=== PATIENT | female | born 2000 | race Caucasian/White ===

== ENCOUNTER 2019-09-10 11:36 | Emergency (ER) | payer OTHER ==
[2019-09-10 12:01] LABS: BILIRUBIN,URINE NEGATIVE (NEGATIVE); GLUCOSE, URINE (UA) NEGATIVE (NEGATIVE); KETONES,URINE (UA) TRACE mg/dL (NEGATIVE); LEUKOCYTE ESTERASE, URINE SMALL (NEGATIVE); NITRITE,URINE POSITIVE (NEGATIVE); OCCULT BLOOD,URINE TRACE-INTA (NEGATIVE); PROTEIN,URINE 30 mg/dL (NEGATIVE); UROBILINOGEN,URINE 0.2 (NORMAL) E.U./dL (NORMAL)
[2019-09-10 12:02] LABS: CLARITY,URINE HAZY (CLEAR)
[2019-09-10 12:10] LABS: BACTERIA,URINE Many /HPF (None Seen); RBC,URINE 0-5 /HPF (0-5); SQUAMOUS EPITHELIAL CELL,UR MANY Squamous (<= Few)
[2019-09-10 12:25] LABS: BASOPHILS # (AUTO) 0.1 10^3/uL (0.0-0.1); BASOPHILS % (AUTO) 0.7 %; EOSINOPHILS % (AUTO) 0.1 %; HGB - HEMOGLOBIN 11.4 g/dL (12.0-16.0); LYMPHOCYTES # (AUTO) 1.1 10^3/uL (1.5-3.5); LYMPHOCYTES % (AUTO) 10.3 %; MEAN CORPUSCULAR HEMOGLOBIN 29.2 pg (27.0-31.0); MEAN CORPUSCULAR HGB CONC 32.3 g/dL (32.0-36.0); MEAN CORPUSCULAR VOLUME 90.5 fL (81.0-99.0); MEAN PLATELET VOLUME 8.4 fL (7.9-10.8); MONOCYTES # (AUTO) 1.1 10^3/uL (0.0-1.0); MONOCYTES % (AUTO) 10.6 %; NEUTROPHILS # (AUTO) 8.3 10^3/uL (1.5-6.6); NEUTROPHILS % (AUTO) 77.9 %; PLT - PLATELET COUNT 364 10^3/uL (130-450); RED CELL DISTRIBUTION WIDTH 13.2 % (12.0-15.0); WHITE BLOOD COUNT 10.6 x10^3/uL (4.8-10.8)
[2019-09-10 12:36] LABS: ALBUMIN 4.2 g/dL (3.2-5.5); ALBUMIN/GLOBULIN RATIO 1.2 (1.0-2.2); BILIRUBIN,TOTAL 0.7 mg/dL (0.2-1.0); CALCIUM 9.2 mg/dL (8.5-10.3); CREATININE 0.9 mg/dL (0.4-1.0); TOTAL PROTEIN 7.8 g/dL (6.7-8.2)
[2019-09-10 16:38] LABS: HCG UR QUAL NEGATIVE
[2019-09-10] MEDS ORDERED: SODIUM CHLORIDE 0.9% 1,000 ML IV ONE (16:42)
[2019-09-10] MEDS ORDERED: ONDANSETRON 4 MG/2 ML VIAL IVP STA (16:43)
[2019-09-10] MEDS ORDERED: POTASSIUM CHLORIDE 20 MEQ TABLET PO STA (16:44)
[2019-09-10] MEDS ORDERED: cefTRIAXone 2 GM in SODIUM CHLORIDE 0.9% MINIBAG 100 ML IV STA (16:53)
--- NOTE | 2019-09-10 17:03 | ED Physician Documentation ---
History of Present Illness - Stated complaint Stated Complaint: DIZZINESS - Chief complaint Chief Complaint: Abd Pain - History obtained from History obtained from: Patient - History of Present Illness Timing: Last night Pain level max: 4 Pain level now: 4 Quality: dull Radiates to: back Improved by: nothing Worsened by: nothing - Additonal information Additional information: 18-year-old female who is otherwise healthy presents to the emergency department for evaluation because of dizziness, lightheadedness. She stated that she went home after work around midnight, patient started feeling lightheaded, dizzy and had one episode of vomiting. Patient stated that she felt like she was going to pass out. She reported of patient is going in and out as if she was going to pass out but she did not pass out. Symptoms was worse with standing. She denies associated chest pain or shortness of breath. Patient report of bilateral lower abdominal discomfort radiating to her back. She denies dysuria or urinary frequency or urgency. She also reports of heat flashes. She reports of a headache. She denies any neck pain. She denies any speech problems, extremity numbness, weakness. She denies similar symptoms like this in the past. Her last menstrual period was last week. She denies any vaginal bleeding or vaginal discharge. Review of Systems Constitutional: denies: Fever, Chills Eyes: denies: Loss of vision, Photophobia Nose: denies: Rhinorrhea / runny nose Throat: denies: Dental pain / toothache Cardiac: reports: Other (light-headedness. 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 : None HEENT: None Psych: None Musculoskeletal: None Derm: None - Past Surgical History Past Surgical History: No - Present Medications Home Medications: Ambulatory Orders Medication Instructions Recorded Confirmed Cephalexin [Keflex] 500 mg PO BID #10 capsule 09/10/19 - Allergies Allergies/Adverse Reactions: Allergies Allergy/AdvReac Type Severity Reaction Status Date / Time No Known Drug Allergies Allergy Verified 09/10/19 11:40 - Social History Does the pt smoke?: Yes Smoking Status: Current every day smoker Does the pt drink ETOH?: No Does the pt have substance abuse?: No - Immunizations Immunizations are current?: Yes PD ED PE NORMAL - Vitals Vital signs reviewed: Yes - General General: Alert and oriented X 3 - HEENT HEENT: Atraumatic, PERRL, EOMI, Moist mucous membranes, Other (no nystagmus) - Neck Neck: Supple, no meningeal sign - Cardiac Cardiac: Other (tachycardiac) - Abdomen Abdomen: Normal bowel sounds, Soft, Non tender, Non distended, No organomegaly - Back Back: No CVA TTP - Extremities Extremities: No deformity - Neuro Neuro: Alert and oriented X 3, resourcing consultant 2-12 intact, No motor deficit, No sensory deficit, Normal speech, Other (Finger to nose is normal bilaterally. Rapid hand movements were normal. No nystagsmus. ) Eye Opening: Spontaneous Motor: Obeys Commands Verbal: Oriented GCS Score: 15 Results - Vitals Vitals: Vital Signs - 24 hr 09/10/19 09/10/19 09/10/19 11:40 15:00 16:42 Temperature 36.5 C Heart Rate 109 H 109 H Heart Rate [ 110 H Sitting] Heart Rate [ 103 H Standing] Heart Rate [ 99 Supine] Respiratory 14 18 Rate Blood Pressure 118/78 106/60 Blood Pressure 95/66 [Sitting] Blood Pressure 74/32 L [Standing] Blood Pressure 92/60 [Supine] O2 Saturation 100 97 09/10/19 09/10/19 19:38 19:45 Temperature Heart Rate 96 Heart Rate [ Sitting] Heart Rate [ Standing] Heart Rate [ Supine] Respiratory 18 16 Rate Blood Pressure 108/69 Blood Pressure [Sitting] Blood Pressure [Standing] Blood Pressure [Supine] O2 Saturation 98 Oxygen O2 Source Room air - Labs Labs: Laboratory Tests 09/10/19 09/10/19 09/10/19 11:48 11:48 12:17 WBC 10.6 RBC 3.90 L Hgb 11.4 L Hct 35.3 L MCV 90.5 MCH 29.2 MCHC 32.3 RDW 13.2 Plt Count 364 MPV 8.4 Neut # (Auto) 8.3 H Lymph # (Auto) 1.1 L Dukes # (Auto) 1.1 H Eos # (Auto) 0.0 Baso # (Auto) 0.1 Absolute Nucleated RBC 0.00 Nucleated RBC % 0.0 Sodium Potassium Chloride Carbon Dioxide Anion Gap BUN Creatinine Estimated GFR (MDRD) Glucose Calcium Total Bilirubin AST ALT Alkaline Phosphatase Total Protein Albumin Globulin Albumin/Globulin Ratio Lipase Urine Color YELLOW Urine Clarity HAZY Urine pH 6.0 Ur Specific Mascot >=1.030 H >=1.030 H Urine Protein 30 H Urine Glucose (UA) NEGATIVE Urine Ketones TRACE Urine Occult Blood TRACE-INTA Urine Nitrite POSITIVE H Urine Bilirubin NEGATIVE Urine Urobilinogen 0.2 (NORMAL) Ur Leukocyte Esterase SMALL H Urine RBC 0-5 Urine WBC >25 H Ur Squamous Epith Cells MANY Squamous H Urine Bacteria Many H Ur Microscopic Review INDICATED Urine Culture Comments NOT INDICATED Urine HCG, Qual NEGATIVE 09/10/19 12:17 WBC RBC Hgb Hct MCV MCH MCHC RDW Plt Count MPV Neut # (Auto) Lymph # (Auto) Dukes # (Auto) Eos # (Auto) Baso # (Auto) Absolute Nucleated RBC Nucleated RBC % Sodium 137 Potassium 3.2 L Chloride 103 Carbon Dioxide 24 Anion Gap 10.0 BUN 10 Creatinine 0.9 Estimated GFR (MDRD) 81 L Glucose 114 H Calcium 9.2 Total Bilirubin 0.7 AST 39 ALT 22 Alkaline Phosphatase 66 Total Protein 7.8 Albumin 4.2 Globulin 3.6 Albumin/Globulin Ratio 1.2 Lipase 29 Urine Color Urine Clarity Urine pH Ur Specific Mascot Urine Protein Urine Glucose (UA) Urine Ketones Urine Occult Blood Urine Nitrite Urine Bilirubin Urine Urobilinogen Ur Leukocyte Esterase Urine RBC Urine WBC Ur Squamous Epith Cells Urine Bacteria Ur Microscopic Review Urine Culture Comments Urine HCG, Qual PD MEDICAL DECISION MAKING - ED course Complexity details: re-evaluated patient, d/w patient ED course: EKG performed at 09/10/2019 showed sinus rhythm with rate of 83, normal axis, normarl pr, qrs and qtc. Nonspecific ST changes without ST elevation or depression. No old EKG to compare. I have considered arrhythmia, sepsis, dehydration, electrolyte derangement and other etiologies in the differential diagnosis. 1700 Stable. Orthostatic vitals were positive. Patient was symptomatic with dizziness. IV fluid being infused. 1800 No acute distress. Awaiting for pelvic ultrasound. 1919 Stable. Feeling better. No distress. 1936 Patient ambulated with a steady gait. No dizziness. Feeling much better. No vomiting. Stable to be discharged. Departure - Departure Disposition: 01 Home, Self Care Clinical Impression: Dehydration, Hypokalemia Urinary tract infection Qualifiers: Urinary tract infection type: site unspecified Hematuria presence: without hematuria Qualified Code(s): N39.0 - Urinary tract infection, site not specified Condition: Stable Instructions: ED Dehydration, ED UTI Cystitis Female Follow-Up: BERNARDO Dial [Provider Group] - Within 1 week Prescriptions: Cephalexin [Keflex] 500 mg PO BID #10 capsule Comments: PLEASE RETURN TO THE EMERGENCY DEPARTMENT IF YOU HAVE A FEVER OF 100.4 OR GREATER, RETURN OF SYMPTOMS, EPISODES OF PASSING OUT OR ANY NEW OR CONCERNING SYMPTOMS. Discharge Date/Time: 09/10/19 19:50
[2019-09-10] MEDS ORDERED: KETOROLAC 15 MG/ML VIAL IVP STA (17:11)
--- NOTE | 2019-09-10 19:29 | Ultrasound Report ---
Reason: pelvic cramps Procedure Date: 09/10/2019 Accession Number: [id number] / [id number] Procedure: US - Pelvic Complete CPT Code: Final Report FULL RESULT: EXAM: PELVIC ULTRASOUND EXAM DATE: 09/10/2019 06:57 PM. CLINICAL HISTORY: Pelvic cramps. COMPARISON: None. TECHNIQUE: Realtime transabdominal pelvic scan performed to identify the uterus and adnexa and as an overview of other pelvic structures, with static image documentation. FINDINGS: Uterus: 7.2 x 3.0 x 5.0 cm, volume 56 cc. Anteverted position. Normal overall size and echotexture. Masses: None. Endometrium: 6 mm. Normal. Cervix: Unremarkable. Right Ovary: 2.4 x 2.2 x 2.0 cm, volume 5.4 cc. Normal echotexture and blood flow. Left Ovary: 2.8 x 2.1 x 1.9 cm, volume 6 cc. Normal echotexture and blood flow. Free Fluid: None. Other: None. IMPRESSION: Normal pelvic ultrasound. RADIA
[2019-09-10 19:39] VITALS: BP 108/69
== END 2019-09-10 19:50 | disposition home or self-care (01) ==
LOC: ED 11:36
DX: E86.0 Dehydration (principal); E87.6 Hypokalemia; N39.0 Urinary tract infection, site not specified; F17.200 Nicotine dependence, unspecified, uncomplicated
CPT/HCPCS: 36415; 76856; 80053; 81001; 81025; 83690; 85025; 93005; 96365; 96375; 99284; A9270; 81003; 87086

== ENCOUNTER 2021-02-06 10:27 | Emergency (ER) | payer OTHER ==
--- NOTE | 2021-02-06 11:25 | ED Physician Documentation ---
PD HPI UPPER EXT INJURY - Stated complaint Stated Complaint: LT HAND FINGER LACK - Chief complaint Chief Complaint: Laceration - History obtained from History obtained from: Patient - History of Present Illness Location: Left, Finger (middle) Type of injury: Other (industrial needle caught finger tip and took off distal portion of nail with acrylic. 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 : None HEENT: None Psych: None Musculoskeletal: None Derm: None - Past Surgical History Past Surgical History: No - Present Medications Home Medications: Ambulatory Orders Medication Instructions Recorded Confirmed No Known Home Medications 02/06/21 02/06/21 - Allergies Allergies/Adverse Reactions: Allergies Allergy/AdvReac Type Severity Reaction Status Date / Time No Known Drug Allergies Allergy Verified 02/06/21 10:35 - Social History Does the pt smoke?: No Smoking Status: Never smoker Does the pt drink ETOH?: No Does the pt have substance abuse?: No - Immunizations Immunizations are current?: Yes PD ED PE NORMAL - Vitals Vital signs reviewed: Yes - General General: Alert and oriented X 3, Well developed/nourished - Derm Derm: Normal color, Warm and dry - Extremities Extremities: Other (left middle finger distal third of nail avulsed and portion of nail still dangling barely attached. The nailbed is actually fairly flat and ddoes not need repair. ) Results - Vitals Vitals: Oxygen O2 Source Room air PD MEDICAL DECISION MAKING - ED course Complexity details: considered differential, d/w patient Departure - Departure Disposition: 01 Home, Self Care Clinical Impression: Nail avulsion, finger Qualifiers: Encounter type: initial encounter Qualified Code(s): S61.309A - Unspecified open wound of unspecified finger with damage to nail, initial encounter Condition: Stable Record reviewed to determine appropriate education?: Yes Comments: Clean the wound with soap and water once or twice a day and apply ointment. Recheck if signs of infection. Otherwise the laceration of the nailbed should heal over several days to a week or so and the new nail should grow out over that area over time. Tylenol or ibuprofen if needed for pains. Discharge Date/Time: 02/06/21 12:51
[2021-02-06] MEDS ORDERED: IBUPROFEN 600 MG TABLET PO STA (12:00)
[2021-02-06] MEDS ORDERED: BACITRACIN ZINC OINT 1 PACKET TOP STA ×2 (12:00→12:36)
[2021-02-06 12:47] VITALS: BP 123/78
== END 2021-02-06 12:51 | disposition home or self-care (01) ==
LOC: ED 10:27
DX: S61.303A Unspecified open wound of left middle finger with damage to nail, initial encounter (principal); W23.1XXA Caught, crushed, jammed, or pinched between stationary objects, initial encounter; Y99.0 Civilian activity done for income or pay
CPT/HCPCS: 99282; A9270

== ENCOUNTER 2021-04-13 12:21 | Emergency (ER) | payer OTHER ==
[2021-04-13 12:28] VITALS: BP 124/74
--- NOTE | 2021-04-13 12:59 | ED Physician Documentation ---
History of Present Illness - Stated complaint Stated Complaint: RASH,FACIAL SWELLING - Chief complaint Chief Complaint: Heent - History obtained from History obtained from: Patient - History of Present Illness Timing: How many days ago (3) Pain level max: 0 Pain level now: 0 - Additonal information Additional information: 20-year-old female presents to the emergency department stating that she has had swelling and redness to her nose and face for the past several days. This has occurred in the past. No cause found. Does have a nose ring. She has been referred to ENT but does not have an appointment yet. She states it feels hot and swollen. Concerned about potential infection. 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 : None HEENT: None Psych: None Musculoskeletal: None Derm: None - Past Surgical History Past Surgical History: No - Present Medications Home Medications: Ambulatory Orders Medication Instructions Recorded Confirmed Sulfamethox/Trimeth 800/160 1 each PO BID #14 tablet 04/13/21 [Bactrim Ds 800/160] cephALEXin [Keflex] 500 mg PO Q6H #28 cap 04/13/21 predniSONE [Deltasone] 40 mg PO DAILY #10 tablet 04/13/21 - Allergies Allergies/Adverse Reactions: Allergies Allergy/AdvReac Type Severity Reaction Status Date / Time No Known Drug Allergies Allergy Verified 04/13/21 12:28 - Social History Does the pt smoke?: No Smoking Status: Never smoker Does the pt drink ETOH?: No Does the pt have substance abuse?: No - Immunizations Immunizations are current?: Yes PD ED PE NORMAL - Vitals Vital signs reviewed: Yes - General General: Alert and oriented X 3, No acute distress, Well developed/nourished - HEENT HEENT: PERRL, Moist mucous membranes, Other (malar erythema, swollen, edematous nose. no drainable abscess. ) - Neck Neck: Supple, no meningeal sign - Cardiac Cardiac: RRR, Strong equal pulses - Respiratory Respiratory: No respiratory distress, Clear bilaterally - Abdomen Abdomen: Soft, Non tender, Non distended - Derm Derm: Warm and dry - Neuro Neuro: Alert and oriented X 3 - Psych Psych: Normal mood, Normal affect Results - Vitals Vitals: Vital Signs - 24 hr 04/13/21 12:25 Temperature 36.2 C L Heart Rate 90 Respiratory 16 Rate Blood Pressure 124/74 O2 Saturation 100 Oxygen O2 Source Room air PD MEDICAL DECISION MAKING - ED course Complexity details: considered differential, d/w patient ED course: Patient with erythema to the malar area of her face. Likely represents a cellulitis, possibly secondary to her nose ring, possible allergic response to the metal in the nose ring. We will place on steroids and antibiotics to see if she improves. She does have a follow-up scheduled with ENT. As this has been recurrent, lupus would be on the differential as well as other autoimmune diseases. Recommend she follow-up with her doctor for this. Patient counseled regarding signs and symptoms for which I believe and urgent re-evaluation would be necessary. Patient with good understanding of and agreement to plan and is comfortable going home at this time This document was made in part using voice recognition software. While efforts are made to proofread this document, sound alike and grammatical errors may occur. Departure - Departure Disposition: 01 Home, Self Care Clinical Impression: Cellulitis Qualifiers: Site of cellulitis: face Qualified Code(s): L03.211 - Cellulitis of face Condition: Good Instructions: ED Cellulitis Facial Follow-Up: HOLLY HADDAD DO [Primary Care Provider] - Within 1 week Prescriptions: Sulfamethox/Trimeth 800/160 [Bactrim Ds 800/160] 1 each PO BID #14 tablet predniSONE [Deltasone] 40 mg PO DAILY #10 tablet cephALEXin [Keflex] 500 mg PO Q6H #28 cap Comments: Your prescriptions were sent to [facility] in [place]. Please follow-up with your doctor for further care. I would recommend removal of the nose ring as this could be contributing to the infection. It is possible that the malar rash that you are having could be consistent with an autoimmune condition such as lupus, I think this is less likely. Please follow- up with ENT as recommended.
== END 2021-04-13 13:27 | disposition home or self-care (01) ==
LOC: ED 12:21
DX: L03.211 Cellulitis of face (principal)
CPT/HCPCS: 99283

== ENCOUNTER 2021-08-14 14:37 | Outpatient (CLI) | payer OTHER | END 2021-08-14 23:59 | disposition home or self-care (01) | LOC: LAB.N 14:37 | PROVIDERS: ATTEND Nurse Practitioner | DX: U07.1 COVID-19 (principal) ==

== ENCOUNTER 2021-08-17 09:26 | Emergency (ER) | payer OTHER ==
[2021-08-17 09:33] VITALS: BP 132/74
[2021-08-17 09:58] LABS: RAPID STREP SCREEN Negative (Negative)
[2021-08-17] MEDS ORDERED: cephALEXin 250 MG CAPSULE PO STA (10:24)
[2021-08-17] MEDS ORDERED: DEXAMETHASONE 10 MG/ML VIAL PO STA (10:24)
--- NOTE | 2021-08-17 10:27 | ED Physician Documentation ---
History of Present Illness - Stated complaint Stated Complaint: SORE THROAT/COUGH - Chief complaint Chief Complaint: Heent - History obtained from History obtained from: Patient - History of Present Illness Timing: Today Pain level max: 0 Pain level now: 0 - Additonal information Additional information: 20-year-old female states that she has been sick for the past 5 days. Sore throat, nasal congestion. Noticed white patches on her throat today. Negative Covid test 2 days ago. Denies any possibility of . 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 : None HEENT: None Psych: None Musculoskeletal: None Derm: None - Past Surgical History Past Surgical History: No - Present Medications Home Medications: Ambulatory Orders Medication Instructions Recorded Confirmed Sulfamethox/Trimeth 800/160 1 each PO BID #14 tablet 04/13/21 [Bactrim Ds 800/160] cephALEXin [Keflex] 500 mg PO Q6H #28 cap 04/13/21 predniSONE [Deltasone] 40 mg PO DAILY #10 tablet 04/13/21 Penicillin V Potassium 500 mg PO Q6HR #40 tablet 08/17/21 - Allergies Allergies/Adverse Reactions: Allergies Allergy/AdvReac Type Severity Reaction Status Date / Time No Known Drug Allergies Allergy Verified 08/17/21 09:34 - Social History Does the pt smoke?: No Smoking Status: Never smoker Does the pt drink ETOH?: No Does the pt have substance abuse?: No - Immunizations Immunizations are current?: Yes PD ED PE NORMAL - General General: Alert and oriented X 3 - HEENT HEENT: Ears normal, Moist mucous membranes, Other (Posterior oropharynx is erythematous with tonsillar exudates. Normal phonation. No trismus. Uvula midline.) - Neck Neck: Supple, no meningeal sign - Cardiac Cardiac: RRR - Respiratory Respiratory: No respiratory distress, Clear bilaterally - Derm Derm: Warm and dry - Neuro Neuro: Alert and oriented X 3 - Psych Psych: Normal mood, Normal affect Results - Vitals Vitals: Vital Signs - 24 hr 08/17/21 09:30 Temperature 36.6 C Heart Rate 98 Respiratory 18 Rate Blood Pressure 132/74 H O2 Saturation 100 Oxygen O2 Source Room air - Labs Labs: Laboratory Tests 08/17/21 09:35 Group A Strep Rapid Negative PD MEDICAL DECISION MAKING - ED course Complexity details: reviewed results, considered differential, d/w patient ED course: Patient with what appears to be strep pharyngitis clinically. We will place on antibiotics and have her follow-up with her doctor for further care. Patient is well-appearing, nontoxic. Afebrile. No evidence of peritonsillar or retropharyngeal abscess. Patient counseled regarding signs and symptoms for which I believe and urgent re-evaluation would be necessary. Patient with good understanding of and agreement to plan and is comfortable going home at this time This document was made in part using voice recognition software. While efforts are made to proofread this document, sound alike and grammatical errors may occur. Departure - Departure Disposition: 01 Home, Self Care Clinical Impression: Pharyngitis Qualifiers: Pharyngitis/tonsillitis etiology: unspecified etiology Qualified Code(s): J02.9 - Acute pharyngitis, unspecified Condition: Good Instructions: ED Strep Pharyngitis Poss Follow-Up: HOLLY HADDAD DO [Primary Care Provider] - Prescriptions: Penicillin V Potassium 500 mg PO Q6HR #40 tablet Comments: Please follow-up with your doctor as needed for further care. Take all antibiotics until gone. Even if you are feeling better. Your prescription was sent to [facility] in [place]. Discharge Date/Time: 08/17/21 10:29
== END 2021-08-17 10:29 | disposition home or self-care (01) ==
LOC: ED 09:26
DX: J02.9 Acute pharyngitis, unspecified (principal)
CPT/HCPCS: 87070; 87430; 99282; 99283

== ENCOUNTER 2023-09-14 09:20 | Emergency (ER) | payer OTHER ==
--- NOTE | 2023-09-14 10:22 | ED Physician Documentation ---
PD HPI HEENT - Stated complaint Stated Complaint: FACIAL SWELLING - Chief complaint Chief Complaint: Heent - History obtained from History obtained from: Patient - History of Present Illness Timing - onset: How many days ago (4) Timing - duration: Days (4) Timing - details: Abrupt onset, Still present Location: Left ear Improves: No: Medication (seen at walk in and Rx Ofloxacin ear drops. Pt states it feels like the drops are not getting in ear canal due to swelling and has had icnreased swelling around ear since then.) Worsens: Swalllowing Associated symptoms: No: Fever, Congestion, Cough Similar symptoms before: Has not had sx before Recently seen: Clinic (2 days ago) Review of Systems Constitutional: denies: Fever, Chills Ears: reports: Loss of hearing, Ear pain. denies: Drainage/discharge Nose: denies: Rhinorrhea / runny nose, Congestion Throat: denies: Sore throat Skin: denies: Rash PD PAST MEDICAL HISTORY - Past Medical History Past Medical History: Yes Cardiovascular: None Respiratory: None Neuro: None Endocrine/Autoimmune: None GI: None MANAGER GROUP: None : None HEENT: None Psych: None Musculoskeletal: None Derm: None - Past Surgical History Past Surgical History: No - Present Medications Home Medications: Ambulatory Orders Medication Instructions Recorded Confirmed Sulfamethox/Trimeth 800/160 1 each PO BID #14 tablet 04/13/21 [Bactrim Ds 800/160] cephALEXin [Keflex] 500 mg PO Q6H #28 cap 04/13/21 predniSONE [Deltasone] 40 mg PO DAILY #10 tablet 04/13/21 Penicillin V Potassium 500 mg PO Q6HR #40 tablet 08/17/21 HYDROcod/ACETAM 5/325 [[place] 5/325] 1 ea PO Q6H PRN #10 tablet 09/14/23 Sulfamethox/Trimeth 800/160 1 each PO BID #12 tablet 09/14/23 [Bactrim Ds 800/160] - Allergies Allergies/Adverse Reactions: Allergies Allergy/AdvReac Type Severity Reaction Status Date / Time No Known Drug Allergies Allergy Verified 09/14/23 09:31 - Social History Does the pt smoke?: No Smoking Status: Current some day smoker Does the pt drink ETOH?: No Does the pt have substance abuse?: No - Immunizations Immunizations are current?: Yes - POLST Patient has POLST: No PD ED PE NORMAL - Vitals Vital signs reviewed: Yes - General General: Alert and oriented X 3, Well developed/nourished - HEENT HEENT: Pharynx benign. No: Ears normal (right ear normal. Left with severe swelling inner helix and the canal to point of not being able to see the TM due to swelling. Enough opening in canal to place Jones Ear wick without much discomrot and put some drops in that wicked in well. ) - Neck Neck: Supple, no meningeal sign, No adenopathy - Cardiac Cardiac: RRR, No murmur - Respiratory Respiratory: Clear bilaterally - Derm Derm: Normal color, Warm and dry, Other (redness of skin around the inner helix and outer canal of left ear.) Results - Vitals Vitals: Oxygen O2 Source Room air PD Medical Decision Making - ED course Complexity details: considered differential (has had progressive swelling of ear and pain, with swelling behind ear and of the inner helix part of the ear, with redness c/w tissue infection/cellulitis now too, so needs oral as well as topical abx. ), d/w patient Departure - Departure Disposition: 01 Home, Self Care Clinical Impression: Otitis externa, Cellulitis of ear canal Condition: Stable Record reviewed to determine appropriate education?: Yes Instructions: ED Infec Skin Cellulitis, ED Otitis Externa Prescriptions: Sulfamethox/Trimeth 800/160 [Bactrim Ds 800/160] 1 each PO BID #12 tablet HYDROcod/ACETAM 5/325 [[place] 5/325] 1 ea PO Q6H PRN #10 tablet PRN Reason: Pain Comments: Continue with the current eardrops. It should absorb in and get to the ear canal better with the wick in place. Will add Bactrim antibiotic twice daily for the next 5 or 6 days as it appears to be a skin tissue infection around the area as well. Add Tylenol ibuprofen as needed for pains or hydrocodone if needed for worse pains. Recheck if not improving well over the next few days. As the swelling goes down, you can remove the ear wick which is some tweezers. I sent your prescription to your preferred pharmacy. I am prescribing a short course of narcotic pain medication for you. These are potentially dangerous and addictive medications that should be used carefully. These medications may constipate you. Take an fcmk-tos-iiociay stool softener such as docusate twice daily with plenty of water while taking these medications. If you go 24 hours without a bowel movement, take [id number] MiraLAX, per package instructions. Do not drink or drive while taking these medications. If you received narcotic or sedating medications while in the emergency department do not drive for 24 hours. Store this medication in a safe, secure place and out of reach of children. It is a violation of federal law to give or sell this medication to another person or to use in a manner other than prescribed. The ED will not refill narcotic prescriptions, including prescriptions lost or stolen. You can dispose of unwanted medications at the [facility]'s office or at several pharmacies such as [facility]. Forms: PCP List Discharge Date/Time: 09/14/23 10:59
[2023-09-14] MEDS: HYDROcod/ACETAM 5/325 MG TABLET PO STA (10:35)
[2023-09-14] MEDS: SULFAMETH/TRIMETH DS 800/160 MG TABLET PO STA (10:36)
[2023-09-14] MEDS: ACETAMINOPHEN 500 MG TABLET PO STA (10:36)
[2023-09-14 11:05] VITALS: BP 152/87; O2SAT 98
== END 2023-09-14 10:59 | disposition home or self-care (01) ==
LOC: ED 09:20
DX: H60.92 Unspecified otitis externa, left ear (principal); H60.12 Cellulitis of left external ear; F17.200 Nicotine dependence, unspecified, uncomplicated; Z79.899 Other long term (current) drug therapy
CPT/HCPCS: 99282; 99283; A9270